=== PATIENT | male | born 1990 | race Caucasian/White ===

== ENCOUNTER 2023-12-26 08:07 | Emergency (ER) | payer BC, OTHER ==
[~2023-12-26] VITALS: Ht 180.3 cm; Wt 97.2 kg
[2023-12-26 08:12] VITALS: BP 149/84; PULSE 72; RESP 16; O2SAT 97
[2023-12-26 11:52] VITALS: TEMP 97.1
== END 2023-12-26 11:55 | disposition home or self-care (01) ==
LOC: ER 08:08
DX: S39.848A Other specified injuries of external genitals, initial encounter (principal); X58.XXXA Exposure to other specified factors, initial encounter; Y93.89 Activity, other specified; Y92.89 Other specified places as the place of occurrence of the external cause; Y99.8 Other external cause status
CPT/HCPCS: 76870; 93976; 99284